=== PATIENT | female | born 1945 | race Caucasian/White ===

== ENCOUNTER → 2021-10-02 10:07 | Outpatient (CLI) | payer MEDICARE, SELFPAY ==
--- NOTE | ~2021-10-02 | MR_ITS ---
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 TECHNIQUE: Magnetic resonance imaging (MRI) of the brain and brainstem was performed without intraven ous contrast. COMPARISON: None. FINDINGS: There are scattered areas of nonspecific increased T2-weighted signal intensity in the cere bral white matter and usha, which is within normal limits for the patient's age. There is no intracra nial hemorrhage, acute infarction, or abnormal intracranial mass lesion. The ventricles are normal in size. There are likely changes of right ocular lens replacement surgery. The paranasal sinuses are c lear. The mastoid air cells are normal. IMPRESSION: 1. Normal aging brain. Reviewed, dictated and finalized at location A. IMPRESSION: 1. Normal aging brain.
== END ==
PROVIDERS: PCP Family Medicine Adolescent Medicine; Visit Provider Physician Assistant
DX: H49.00 Third [oculomotor] nerve palsy, unspecified eye (principal)
CPT/HCPCS: 70551

== ENCOUNTER → 2022-09-25 11:12 | Outpatient (CLI) | payer MEDICARE, SELFPAY ==
--- NOTE | ~2022-09-25 | CT_ITS ---
EXAMINATION: CT abdomen pelvis w con DATE: 09/25/2022 11:39 INDICATION: Abdominal pain TECHNIQUE: Computed tomography (CT) of the abdomen and pelvis was performed with 100 mL Omnipaque-350 intravenous contrast. Automated exposure control and iterative reconstruction technique were employe d. The dose-length product was 806.45 mGy-cm. COMPARISON: None FINDINGS: Calcified nodule at the posterior right lower lobe along with several small splenic calcifications co nsistent with old granulomatous disease. Heart size is normal. Aortic valve calcific lesion. No peric ardial or pleural effusion. 1 cm rim calcified lesion long the cephalad aspect of the bernard hepatis m ost likely sequela of old granulomatous disease, unclear whether within the liver or representing a p eriportal lymph node. Mild focal hepatic steatosis at the ligamentum teres. There are several gallsto soy within the nondilated gallbladder. No intra or extrahepatic biliary ductal dilation. There is sma ll amount of ascites scattered throughout the abdomen and pelvis. Small amount of ascites in the less er sac with some stranding along the otherwise unremarkable pancreas. Stranding is more likely relate d to the more diffuse mesenteric an omental edema with no significant ultrasonographic the retroperit andersen side of the pancreas to suggest acute pancreatitis. Duodenal diverticulum posterior to the head of the pancreas which appears to arise from the second portion of the duodenum. There is more dense inflammatory stranding region of the gastric antrum where there is asymmetric wall thickening suspici ous for gastritis or peptic ulcer disease. There is mild scattered colonic diverticulosis without adj acent inflammatory change to suggest diverticulitis. Bilateral adrenal glands are normal. There is mi ld bilateral hydronephrosis with no evident obstructing stones or masses at the transition point at t he ureteropelvic junctions. Mildly delayed left nephrogram relative to the right. There is urothelial enhancement stenting along the left ureter which raises concern for ascending urinary tract infectio n. Partially decompressed bladder is unremarkable. The uterus is not identified and has likely been s urgically resected. 3.5 x 3.6 cm lesion at the right adnexa with central low attenuation likely cysti c lesion but with thick irregular lujan concerning for ovarian neoplasm suggestion of a 1.3 cm thin-w alled cyst at the left adnexa. No abscess or free intraperitoneal gas. No pathologically enlarged abd ominal or pelvic lymphadenopathy. Essentially confluent patchy sclerosis with multiple small lytic le sions throughout the visualized bones consistent with likely widespread osseous metastatic disease. G rade 1 anterolisthesis L4 on L5 and L5 on S1 with associated severe facet osteoarthritis. IMPRESSION: 1. Widespread patchy sclerosis of the bones with scattered correlate for any known history of prior m alignancy small lytic lesion suspicious for widespread osseous metastatic disease. Correlate for any known history of prior malignancy. 2. Small amount of likely reactive ascites in widespread mesenteric edema. There is more focal strand ing region of the gastric antrum where there is some asymmetric wall thickening raising concern for g astritis or peptic ulcer disease. Differential would also include gastric carcinoma. Would recommend further evaluation with endoscopy. 3. The stranding does contact the anterior margin of the pancreas although there is no significant ce ntral retroperitoneal stranding and acute pancreatitis considered unlikely. Nonetheless would correla te with amylase and lipase levels. 4. Cholelithiasis but without dilation the gallbladder to suggest acute cholecystitis. If there is cl inical concern this could be further evaluated with HIDA scan. 5. 3.6 x 3.5 cm complex cystic lesion at the right adnexa suspicious for ovarian neoplasm. Differenti al would include hemorr
[2022-09-25 11:28] LABS: Estimated Glomerular Filt Rate > 60
== END ==
PROVIDERS: PCP Nurse Practitioner Family; Visit Provider Nurse Practitioner Family
DX: R93.5 Abnormal findings on diagnostic imaging of other abdominal regions, including retroperitoneum (principal); K80.20 Calculus of gallbladder without cholecystitis without obstruction; N83.201 Unspecified ovarian cyst, right side; N13.30 Unspecified hydronephrosis; R63.4 Abnormal weight loss; R19.06 Epigastric swelling, mass or lump; R10.13 Epigastric pain
CPT/HCPCS: 74177; Q9967

== ENCOUNTER → 2022-10-05 10:34 | Outpatient (CLI) | payer MEDICARE, SELFPAY ==
--- NOTE | ~2022-10-05 | US_ITS ---
EXAMINATION: US pelvic complete DATE: 10/05/2022 11:16 INDICATION: Follow-up right ovarian cyst Comparison:CT dated 09/25/2022 TECHNIQUE: Multiple transabdominal sonographic images of the pelvis performed. FINDINGS: The uterus is surgically absent. There is a complex right adnexal mass measuring 3.9 x 3.7 x 3.5 cm, which appears mostly solid. There is normal vascularity. Small amount of free fluid in the pelvis. The left ovary is not visualized. IMPRESSION: 1. Prominent right adnexal mass measuring up to 3.9 cm, not adequately visualized for characterizatio n. Consider correlation with MRI pelvis without and with contrast if there is concern for ovarian patricia plasm. Reviewed, dictated and finalized at location B. IMPRESSION: 1. Prominent right adnexal mass measuring up to 3.9 cm, not adequately visualiz ed for characterization. Consider correlation with MRI pelvis without and with contrast if there is concern for ovarian neoplasm.
== END ==
PROVIDERS: PCP Family Medicine Adolescent Medicine; Visit Provider Nurse Practitioner Family
DX: N83.291 Other ovarian cyst, right side (principal)
CPT/HCPCS: 76856

== ENCOUNTER 2022-10-13 01:52 | Day surgery (SDC) | payer MEDICARE, SELFPAY ==
[2022-10-07 15:38] VITALS: BMI 32.7
--- NOTE | 2022-10-13 11:48 | WPDANESEPPF ---
Anes - Initial Pre Proc Eval Procedure: Operation Date: 10/13/22 13:45 Proposed Procedures p Esophagogastroduodenoscopy - Jabier Houston MD Date/Time: 10/13/22 11:48 Surgeon: Jabier Houston MD Pre Op Diagnosis: abnormal weightloss,gastric swelling mass or lump Patient Data Age: 77 Gender: F Height: 1.52 m Weight: 76 kg Allergies Allergy/AdvReac Type Severity Reaction Status Date / Time No Known Allergies Allergy Verified 10/07/22 15:39 Home Medications Medication Instructions Recorded Confirmed Type levothyroxine 75 mcg tablet 75 mcg PO DAILY #90 tabs 02/09/22 10/07/22 Rx meloxicam 15 mg tablet 15 mg PO DAILY #90 tabs 02/09/22 10/07/22 Rx atorvastatin 20 mg tablet 20 mg PO DAILY #90 tabs 08/03/22 10/07/22 Rx lisinopril 20 mg tablet 20 mg PO DAILY #90 tabs 08/03/22 10/07/22 Rx pantoprazole 40 mg tablet,delayed 40 mg PO QAM 8 weeks #56 tabs 09/22/22 10/07/22 Rx release Patient hx anesthesia problems: none Family hx anesthesia problems: none Results Review: All pre-operative results and documents have been reviewed as part of the pre-operative evaluation. [facility] Past Medical History Medical History (Updated 10/07/22 @ 08:30 by Cynthia Lazcano APRN) Gallstones Gastric wall thickening History of cystocele Surgical History Surgical History History of hysterectomy Family History Family History Mother Alzheimer disease Sibling Brannon Jaramillo? syndrome Heart disease Father Heart disease Social History Social History Smoking status: Never smoker Second hand tobacco smoke exposure: No Alcohol intake: never Substance use: never Substance use type: does not use Living arrangements: with family Occupation/Education: retired Gender identity (if verbalized by the patient): Female Sexual Orientation (if Verbalized by the Patient): Straight or Heterosexual Spiritual care concerns: No Agree to blood products: Yes Anes - Eval Final PreProcedure Day of Procedure 10/13/22 11:48 Patient weight: obese Heart: regular rate and rhythm Lungs: clear to auscultation Airway: Mallampati scale class II Neurological: alert and oriented Last oral intake: >/= 8 hours ASA classification: III Emergent: no Anesthetic plan: proceed Anesthesia type and monitoring: general GIVS and standard monitoring Results Review: All pre-operative results and documents have been reviewed as part of the pre-operative evaluation. Informed Consent: The patient's anesthetic plan and its attendant risks and benefits were discussed with the patient/family/POA. Questions were solicited and answers provided to the satisfaction of the patient/family/POA.
[2022-10-13 11:53] VITALS: BP 142/74; PULSE 92; RESP 18; O2SAT 96
--- NOTE | 2022-10-13 11:56 | WPDHPUPDATE1 ---
History and Physical Update Update Date/Time: 10/13/22 11:56 History and Physical has been reviewed, including an updated exam of the patient. There are NO changes in the patient's condition. Risks, benefits, and alternatives have been discussed and questions answered. Patient agrees to proceed with procedure.
[2022-10-13] MEDS: LACTATED RINGERS 1,000 ML 150 ML IV CONT (11:59)
[2022-10-13] MEDS: SIMETHICONE ORAL SUSPENSION 20 MG/0.3 ML 30 ML BOTTLE 0.6 ML IRRIGATION (12:09)
[2022-10-13 12:15] VITALS: BP 85/46; PULSE 81; RESP 21; O2SAT 95
[2022-10-13 12:25] VITALS: BP 91/49; PULSE 80; RESP 22; O2SAT 95
[2022-10-13 12:35] VITALS: BP 104/51; PULSE 75; RESP 25; O2SAT 100
== END 2022-10-13 12:44 | disposition home or self-care (01) ==
PROVIDERS: PCP Family Medicine Adolescent Medicine; Visit Provider Internal Medicine Gastroenterology
PROC: 0DJ08ZZ Inspection of Upper Intestinal Tract, Via Natural or Artificial Opening Endoscopic (ICD-10-PCS; CPT 43235; principal; 2022-10-13 13:45)
DX: Q39.4 Esophageal web (principal); E66.9 Obesity, unspecified; Z68.31 Body mass index [BMI] 31.0-31.9, adult
CPT/HCPCS: 43450; 43239; 87081; J2704; J7120

== ENCOUNTER → 2022-10-19 12:33 | Outpatient (CLI) | payer MEDICARE, SELFPAY ==
--- NOTE | ~2022-10-19 | MR_ITS ---
EXAMINATION: MR pelvis wo/w con INDICATION: Abdominal pain, other noninflammatory disorders of the ovary, right adnexal mass on CT an d ultrasound TECHNIQUE: Coronal SSFSE ARC, Coronal, Axial, and Sagittal T2 FRFSE small [id number], Coronal 2D F IESTA FatSat, Axial SSFSE BH ARC, Axial 3D DualEcho BH, Axial STIR, Axial DWI b=500, pre and dynamic postcontrast Axial LAVA ARC COMPARISON: Ultrasound, 10/05/2022; CT, 09/25/2022 CONTRAST: Multihance, 15 cc FINDINGS: There is a moderate volume of ascites. There is a 3.4 x 3.3 cm right adnexal mass which is predominantly T1 isointense and T2 hypointense with some areas of minimal internal increased T2 signa l intensity. The mass demonstrates enhancement of the solid components after contrast administration. No definite pelvic lymphadenopathy is identified. There are widespread osseous metastases of the vis ualized lumbar spine, pelvis, and proximal femurs. IMPRESSION: 1. Right adnexal mass suspicious for malignancy. Recommend diagnostic paracentesis and/or biopsy. 2. Widespread osseous metastatic disease. Reviewed, dictated and finalized at location F. IMPRESSION: 1. Right adnexal mass suspicious for malignancy. Recommend diagnostic paracente sis and/or biopsy. 2. Widespread osseous metastatic disease.
== END ==
PROVIDERS: PCP Nurse Practitioner Family; Visit Provider Nurse Practitioner Family
DX: N83.8 Other noninflammatory disorders of ovary, fallopian tube and broad ligament (principal); C79.51 Secondary malignant neoplasm of bone
CPT/HCPCS: 72197; A9577

== ENCOUNTER 2022-10-24 07:23 | Emergency (ER) | payer MEDICARE, SELFPAY ==
[2022-10-24] VITALS (58 sets, daily range): BP systolic 90–134; BP diastolic 40–80; PULSE 81–129; RESP 16–29; TEMP 36.6–37.2; O2SAT 92–100
--- NOTE | ~2022-10-24 | CT_ITS ---
EXAMINATION: CT abdomen pelvis w con DATE: 10/24/2022 09:05 INDICATION: Epigastric pain and vomiting TECHNIQUE: Computed tomography (CT) of the abdomen and pelvis was performed with 100 cc Omnipaque 350 intravenous contrast. The dose-length product was 576.42 mGy-cm. Automated exposure control and iter ative reconstruction technique were employed. COMPARISON: CT dated 09/25/2022. FINDINGS: Dependent atelectasis. No significant pleural or pericardial effusion. There is moderate as cites of the abdomen and pelvis. There are dilated small bowel loops in the upper abdomen with possib le transition in the left mid abdomen. There is nodular stranding of the peritoneum in the upper abdo men, suspicious for peritoneal carcinomatosis. Fatty infiltration of the liver. There are calcified granulomas of the spleen. There is atheroscleros is. There is moderate atherosclerosis of the aorta without evidence for aneurysm. Gallstones. No free air. There is bilateral hydronephrosis with normal caliber ureter, possibly UPJ obstruction. There i s left urothelial enhancement. Ascending urinary tract infection not excluded. There is mild left hyd ronephrosis. There is abnormal wall thickening of the stomach, suspicious for gastritis, peptic ulcer disease or carcinoma. Wide spread patchy sclerosis of the bones, suspicious for metastatic disease. There is grade 1 spondylolisthesis at L4-5. There is a complex pelvic mass measuring 3.5 cm, suspicio us for ovarian neoplasm. Differential diagnosis includes peritoneal implant. IMPRESSION: 1. Moderate ascites with nodular peritoneal implants, suspicious for peritoneal carcinomatosis. 2: Complex partially cystic slightly right adnexal mass measuring 3.5 cm. Cannot exclude ovarian patricia plasm. 3: Dilated small bowel with possible transition left upper abdomen, suspicious for partial obstructio n. 4: Abnormal gastric wall thickening which may be secondary to gastritis, peptic ulcer disease or gas tric carcinoma. 5: Widespread patchy sclerosis of the bones, consistent with metastatic disease. 6: Mild bilateral hydronephrosis with transition at the UPJ bilaterally, suspicious for UPJ obstructi on. Left urothelial enhancement, cannot exclude ascending urinary tract infection. Reviewed, dictated and finalized at location A. IMPRESSION: 1. Moderate ascites with nodular peritoneal implants, suspicious for peritoneal carcinomatosis. 2: Complex partially cystic slightly right adnexal mass measuring 3.5 cm. Dipak ot exclude ovarian neoplasm. 3: Dilated small bowel with possible transition left upper abdomen, suspicious for partial obstruction. 4: Abnormal gastric wall thickening which may be secondary to gastritis, pepti c ulcer disease or gastric carcinoma. 5: Widespread patchy sclerosis of the bones, consistent with metastatic disease . 6: Mild bilateral hydronephrosis with transition at the UPJ bilaterally, suspic ious for UPJ obstruction. Left urothelial enhancement, cannot exclude ascending urinary tract infection.
--- NOTE | ~2022-10-24 | XR_ITS ---
XR abdomen NG/feed tube insert INDICATION: Evaluate NG tube position. TECHNIQUE: Limited KUB perform for evaluating NG tube . COMPARISON: CT dated 10/24/2022 FINDINGS: NG tube tip in the stomach. Visualized bowel gas pattern is unremarkable.There is bilatera l hydronephrosis with abrupt transition at the UPJ, suspicious for UPJ obstruction. Nonspecific bowel gas pattern. IMPRESSION: 1: NG tube tip in the stomach. Reviewed, dictated and finalized at location A.
[2022-10-24 07:53] LABS: Basophils Percent Auto 0.7 % (0.2-1.2); Eosinophils Absolute Auto 0.1 K/mm3 (0-0.3); Eosinophils Percent Auto 1.2 % (0-4.4); Hematocrit 31.9 % (37.0-47.0); Hemoglobin 10.2 g/dL (12.0-15.0); Immature Granulocyte Absolute 0.33 K/mm3 (0.00-0.031); Immature Granulocyte Percent A 5.8 % (0-0.5); Lymphocytes Absolute Auto 1.07 K/mm3 (0.9-3.2); Lymphocytes Percent Auto 18.7 % (18.3-44.2); Mean Corpuscular Hemoglobin 30.4 pg (26-34); Mean Corpuscular Volume 95.2 fl (80-100); Mean Platelet Volume 8.9 fl (7.4-10.4); Monocytes Absolute Auto 0.6 K/mm3 (0.1-0.6); Monocytes Percent Auto 9.8 % (2.6-8.5); Neutrophils Absolute Auto 3.7 K/mm3 (1.3-6.7); Neutrophils Percent Auto 63.8 % (45.5-73.1); Nucleated Red Blood Cells Absolute Auto 0.1 K/mm3 (0.0-0.012); Nucleated Red Blood Cells Perc 1.7 % (0.0-0.2); Platelet Count Result 255 k/mm3 (150-375); Red Blood Count 3.35 M/mm3 (4.2-5.4); Red Cell Distribution Width 15.8 % (11.5-14.5); White Blood Count 5.7 K/mm3 (4.5-10.0)
[2022-10-24 08:12] LABS: Alanine Aminotransferase 32 U/L (6-35); Alkaline Phosphatase 217 U/L (38-126); Anion Gap 6 mmol/L (8-16); Aspartate Amino Transferase 57 U/L (14-36); Bilirubin,Total 1.1 mg/dL (0.2-1.3); Blood Urea Nitrogen 21 mg/dL (7-17); Calcium 8.4 mg/dL (8.4-10.2); Carbon Dioxide 31 mmol/L (22-30); Chloride 100 mmol/L (98-107); Estimated CRCL calculation 41 ml/min; Estimated Glomerular Filt Rate > 60; Glucose 122 mg/dL (65-110); Lipase 126 U/L (23-300); Potassium 3.5 mmol/L (3.4-5.0); Sodium 137 mmol/L (137-145)
[2022-10-24] MEDS: SODIUM CHLORIDE 0.9% IV 1,000 ML 999 ML IV CONT (08:21)
[2022-10-24] MEDS: ONDANSETRON INJ 4 MG/2 ML VIAL IV PUSH (08:21)
--- NOTE | 2022-10-24 08:47 | ED.NAVMDI ---
HPI - Nausea/Vomiting/Diarrhea General Chief complaint: Nausea/Vomiting/Diarrhea Stated complaint: Nausea/Vomitting/Diarrhea Time Seen by Provider: 10/24/22 07:25 History of Present Illness HPI Narrative: Patient is a 77-year-old female who presents ER with vomiting and diarrhea. Began having some vomiting last night and then developed diarrhea earlier this morning. Blood in her stool. Reports epigastric discomfort and bloating. Recently diagnosed with metastatic ovarian cancer. She is scheduled to have a follow-up appointment with gynecological oncologist at [facility]. She is not currently receiving any therapy. Denies fevers or chills or sweats. No known sick contacts. No aggravating alleviating factors can be identified. Related Data Allergies Allergy/AdvReac Type Severity Reaction Status Date / Time No Known Allergies Allergy Verified 10/24/22 07:24 Review of Systems Review of Systems: All systems reviewed & are unremarkable except as noted in HPI and below Constitutional: Constitutional: Denies chills, Denies fatigue and Denies fever(s) ENT: Denies nasal congestion and Denies sore throat Cardiovascular: Cardiovascular: Denies chest pain, Denies rapid heart rate and Denies radiating jaw, neck or arm pain Respiratory: Respiratory: Denies cough and Denies dyspnea Gastrointestinal: Gastrointestinal: Reports abdominal pain, Reports bloating, Reports diarrhea, Reports nausea and Reports vomiting PMFSH Past Medical History Medical History (Updated 10/24/22 @ 12:12 by Bo Parrish MD) Fibromyalgia Gallstones Gastric wall thickening History of cystocele Hypothyroid Ovarian mass, right Surgical History Surgical History (Updated 10/24/22 @ 08:50 by Bo Parrish MD) History of esophagogastroduodenoscopy (EGD) History of hysterectomy Family History Family History Mother Alzheimer disease Sibling Guillain Jaramillo? syndrome Heart disease Father Heart disease Social History Social History Smoking status: Never smoker Second hand tobacco smoke exposure: No Alcohol intake: never Substance use: never Substance use type: does not use Living arrangements: with family Occupation/Education: retired Gender identity (if verbalized by the patient): Female Sexual Orientation (if Verbalized by the Patient): Straight or Heterosexual Spiritual care concerns: No Agree to blood products: Yes Exam Narrative: GENERAL: Well-appearing, well-nourished, and in no acute distress. HEAD: Normocephalic, atraumatic. ENT: Mucous membranes moist. NECK: Supple. CHEST: Clear to auscultation. No respiratory distress. HEART: Regular rate and rhythm. No murmur heard. Normal peripheral pulses. ABDOMEN: Soft abdomen that is slightly distended, tympanic to percussion, normal bowel sounds. Mild epigastric tenderness. EXTREMITIES: Normal range of motion. No edema. SKIN: Warm, dry, no rash. NEURO: Alert and oriented x3. PSYCH: Normal mood and affect. Course Course Emergency Course: Patient resting comfortably. Informed of results. NG tube placed. Patient accepted for transfer to [facility] by Dr. Rubalcava. Nausea improved with Zofran and decompression. Vital Signs Vital signs: Vital Signs Temperature 97.9 F 10/24/22 07:25 Pulse Rate 102 H 10/24/22 07:25 Respiratory Rate 20 10/24/22 07:25 Blood Pressure 126/70 10/24/22 07:25 Pulse Oximetry 95 10/24/22 07:25 Oxygen Delivery Room Air 10/24/22 07:25 Temperature 99.0 F 10/24/22 07:39 Pulse Rate 95 10/24/22 12:01 Respiratory Rate 21 H 10/24/22 12:01 Blood Pressure 126/59 L 10/24/22 12:01 Pulse Oximetry 99 10/24/22 12:01 Oxygen Delivery Room Air 10/24/22 07:25 MDM - Nausea/Vomiting/Diarrhea Lab Data 10/24/22 07:48 10/24/22 07:48 Labs: Lab Re
[2022-10-24 10:35] LABS: Add Urine Microscopic? YES; Appearance Urine Clear (Clear); Bacteria Urine None Seen /hpf; Bilirubin Urine Negative (Negative); Blood Urine 2+ (Negative); Color Urine Yellow (Yellow); Glucose Urine UA Negative (Negative); Ketones Urine 1+ mg/dL (Negative); Leukocyte Esterase Ur Negative LEU/UL (Negative); Need Manual Microscopic Reviewed; Nitrate Urine Negative (Negative); Protein Urine 1+ mg/dL (Negative); RBC Urine 51-100 /hpf (0-2); Specific Grav Ur 1.086 (1.001-1.035); Squamous Epithelial Cell Urine None seen /hpf (Few); pH Urine 5.5 (5.0-9.0)
--- NOTE | 2022-10-24 14:27 | PC.NURSE ---
Pt is waiting for bed [facility] cancer center, pt information updated with [facility] transferred center.
[2022-10-25] MEDS: ONDANSETRON INJ 4 MG/2 ML VIAL IV PUSH (00:08)
[2022-10-25 02:09] VITALS: BP 142/71; PULSE 86; RESP 22; O2SAT 95
[2022-10-25 02:50] VITALS: BP 142/71; PULSE 94; RESP 16; O2SAT 98
[2022-10-25] MEDS: MORPHINE SULFATE (*CRX) 4 MG/ML INJ IV PUSH (02:50)
--- NOTE | 2022-10-25 02:56 | PC.NURSE ---
Initial Nurse report called @[phone]. Ambulance initially scheduled to come at 0130 but time changed to 0300. This RN contacted RN at [facility] to update on timing.
== END 2022-10-25 03:01 | disposition short-term general hospital (02) ==
PROVIDERS: Emergency Provider Emergency Medicine; PCP Nurse Practitioner Family
DX: K56.600 Partial intestinal obstruction, unspecified as to cause (principal); C56.9 Malignant neoplasm of unspecified ovary; C79.9 Secondary malignant neoplasm of unspecified site; E03.9 Hypothyroidism, unspecified; M79.7 Fibromyalgia
CPT/HCPCS: 36415; 74177; 80053; 81001; 83690; 85025; 87086; 96361; 96374; 96375; 96376; 99285; J2270; J2405; J7030; Q9967

== ENCOUNTER 2023-05-12 15:17 | Outpatient (CLI) | payer MEDICARE, SELFPAY ==
[2023-05-12 16:20] LABS: Influenza A QL RT-PCR Negative (Negative); Influenza B QL RT-PCR Negative (Negative); RSV RNA, RT-PCR Negative (Negative); SARS-CoV-2 RNA PCR Negative (Negative)
== END 2023-05-12 15:18 | disposition home or self-care (01) ==
PROVIDERS: PCP Nurse Practitioner Family; Visit Provider Nurse Practitioner Family
DX: J06.9 Acute upper respiratory infection, unspecified (principal); Z20.822 Contact with and (suspected) exposure to COVID-19
CPT/HCPCS: 87637